=== PATIENT | female | born 1995 | race Caucasian/White ===

== ENCOUNTER 2022-01-15 08:25 | Emergency (ER) | payer OTHER ==
[2022-01-15 08:36] VITALS: BP 128/85; PULSE 92; TEMP 98.7; BMI 44.2
[2022-01-15 10:08] LABS: HCG,QUALITATIVE URINE Negative
[2022-01-15 10:09] LABS: EPI CELLS >36 /uL (0-25.1); HYALINE CASTS 6 /uL (0-3.1); URINE APPEARANCE CLOUDY; URINE BACTERIA 70 /uL (0-1359); URINE BILIRUBIN 1+ (NEGATIVE); URINE COLOR RED; URINE GLUCOSE (UA) NEGATIVE (NEGATIVE); URINE KETONE TRACE (NEGATIVE); URINE LEUK ESTERASE 1+ (NEGATIVE); URINE NITRITE NEGATIVE (NEGATIVE); URINE PROTEIN 1+ (NEGATIVE); URINE RBC 20318 /uL (0-23.9); URINE UROBILINOGEN 0.2 mg/dL (0.2-1.0); URINE WBC 140 /uL (0-25.8)
[2022-01-15 10:11] LABS: BASO % 0.8 % (0-2.0); EOS % 0.4 % (0-4.5); HEMATOCRIT 41.8 % (32.4-45.2); HEMOGLOBIN 13.8 GM/dL (10.7-15.3); LYMPH % 18.1 % (8-40); MCH 26.5 pg (25.7-33.7); MEAN CELL VOLUME 80.4 fl (80-96); MEAN PLT VOLUME 7.5 fl (7.5-11.1); MONO % 3.7 % (3.8-10.2); PLATELET COUNT 451 10^3/uL (134-434); RDW 15.6 % (11.6-15.6)
[2022-01-15 10:39] LABS: CHLORIDE 106 mmol/L (98-107); SODIUM 140 mmol/L (136-145)
[2022-01-15 10:41] LABS: ALBUMIN 3.9 g/dl (3.4-5.0); CALCIUM 9.3 mg/dL (8.5-10.1); GLUCOSE,RANDOM 102 mg/dL (74-106)
[2022-01-15 10:42] LABS: ANION GAP 8 MMOL/L (8-16); BLOOD UREA NITROGEN 10.4 mg/dL (7-18); CO2 26 mmol/L (21-32)
[2022-01-15 10:44] LABS: SGPT/ALT 35 U/L (13-61)
[2022-01-15 10:45] LABS: CREATININE 0.7 mg/dL (0.55-1.3)
[2022-01-15 10:46] LABS: BILIRUBIN,TOTAL 0.6 mg/dL (0.2-1); TOT PROT 7.9 g/dl (6.4-8.2)
[2022-01-15 10:47] LABS: ALK PHOS 91 U/L (45-117)
[2022-01-15 10:48] LABS: SGOT/AST 16 U/L (15-37)
== END 2022-01-15 11:52 | disposition home or self-care (01) ==
LOC: JER 08:25
DX: R20.2 Paresthesia of skin (principal)
CPT/HCPCS: 36415; 80053; 81003; 82550; 82553; 84443; 84703; 85025; 87086; 99284-25